=== PATIENT | male | born 1935 | race Caucasian/White ===

== ENCOUNTER 2021-10-12 15:38 | Inpatient (IN) ==
[2021-10-12] MEDS ORDERED: Isovue-370 500 ML BOTTLE IVP ONE (16:23)
[2021-10-12 16:52] LABS: Basophils # 0.1 K/mcL (0.0-0.2); Basophils % 0.4 %; Eosinophils # 0.5 K/mcL (0.0-0.6); Hematocrit 38.5 % (37.5-50.1); Hemoglobin 13.6 g/dL (12.9-16.9); Immature Granulocytes % 2.1 % (0-4); Lymphocytes # 0.8 K/mcL (0.6-4.6); Lymphocytes % 6.6 %; Mean Corpuscular HGB Conc 35.3 g/dL (31.6-35.5); Mean Corpuscular Hemoglobin 35.6 pg (28.0-33.3); Mean Corpuscular Volume 100.8 fL (83.0-100.0); Mean Platelet Volume 9.7 fL (9.4-12.4); Monocytes # 0.9 K/mcL (0.0-1.3); Monocytes % 7.6 %; Neutrophils # 9.2 K/mcL (1.6-8.9); Platelet Count 138 K/mcL (140-400); Red Blood Count 3.82 M/mcL (4.19-5.50); Red Cell Distribution Width 13.3 % (11.5-14.5); Segmented Neutrophils % 79.3 %; White Blood Count 11.6 K/mcL (4.3-11.1)
[2021-10-12 17:00] LABS: INR 1.1; Prothrombin Time 12.6 Seconds (9.4-12.1)
[2021-10-12 17:03] LABS: Activated Partial Thrombo Time 28.8 Seconds (26.0-36.0)
[2021-10-12 17:10] LABS: Alanine Aminotransferase 17 Units/L (7-52); Albumin 3.6 g/dL (3.5-5.7); Albumin/Globulin Ratio 1.6 (1.1-2.2); Alkaline Phosphatase 28 Units/L (34-104); Aspartate Amino Transferase 17 Units/L (13-39); BUN/Creatinine Ratio 12 (6-26); Bilirubin,Direct 0.3 mg/dL (0.0-0.2); Bilirubin,Indirect 0.9 mg/dL (0.0-1.0); Bilirubin,Total 1.2 mg/dL (0.3-1.0); Blood Urea Nitrogen 16 mg/dL (8-23); Calcium 8.3 mg/dL (8.6-10.3); Carbon Dioxide 28 mEq/L (23-29); Chloride 95 mEq/L (98-107); Globulin 2.2 g/dL (2.4-3.5); Glucose 134 mg/dL (70-105); Osmolality,Calculated 275 (280-300); Potassium 3.8 mEq/L (3.5-5.1); Sodium 131 mEq/L (136-145); Total Protein 5.8 g/dL (6.4-8.9); Troponin I 0.05 ng/mL (< 0.04); eGFR For African Americans > 60 (> 60); eGFR For Non-African Americans 51 (> 60)
[2021-10-12] MEDS ORDERED: cefTRIAXone 1,000 MG in 0.9 % Sodium Chloride 10 ML IVP ONE (18:47)
[2021-10-12] MEDS ORDERED: Azithromycin 500 MG in 0.9 % Sodium Chloride 250 ML IVPB ONE (18:47)
[2021-10-12 19:58] LABS: Influenza A PCR Negative (Negative); Influenza B PCR Negative (Negative); Resp. Syncytial Virus PCR Negative (Negative)
[2021-10-12 19:59] LABS: SARS-CoV-2 by PCR (In House) Negative (Negative)
[2021-10-12] MEDS ORDERED: Acetaminophen 325 MG TABLET PO PRN (20:55)
[2021-10-12] MEDS ORDERED: Melatonin 3 MG TABLET PO PRN (20:55)
[2021-10-12] MEDS ORDERED: *HR* HYDROcodone/Acet 5/325 mg TABLET PO PRN (20:55)
[2021-10-12] MEDS ORDERED: Naloxone 0.4 MG/ML INJ IVP PRN (20:55)
[2021-10-12] MEDS ORDERED: levoFLOXacin 750 MG/150 ML 750 MG/150 ML BAG IVPB SCH (21:00)
[2021-10-12] MEDS ORDERED: Ipratropium/Albuterol Neb 3 ML IH ONE (21:15)
[2021-10-12] MEDS ORDERED: D5% in Water 1,000 ML IVC PRN (22:02)
[2021-10-12] MEDS ORDERED: Dextrose 4 GM Chewable Tablets PO PRN ×2 (22:02)
[2021-10-12] MEDS ORDERED: *HR* Dextrose 50 % in Water (Syg) 50 ML SYRINGE IVP PRN (22:02)
[2021-10-12] MEDS ORDERED: Perflutren Lipid Microsphere 1.3 ML in 0.9 % Sodium Chloride 8.7 ML IVP PRN (22:05)
[2021-10-12] MEDS: Furosemide 20 MG/2 ML VIAL IVP SCH (23:43)
[2021-10-12] MEDS: Insulin LISPRO 300 UNITS/3 ML VIAL SUBQ SCH (23:43)
[2021-10-12] MEDS: *HR* Heparin 5,000 UNIT/ML VIAL SQ SCH (23:43)
[2021-10-12] MEDS: predniSONE 20 MG TABLET PO SCH (23:44)
[2021-10-13 01:02] LABS: BUN/Creatinine Ratio 12 (6-26); Blood Urea Nitrogen 16 mg/dL (8-23); Calcium 8.1 mg/dL (8.6-10.3); Carbon Dioxide 22 mEq/L (23-29); Chloride 95 mEq/L (98-107); Glucose 211 mg/dL (70-105); Magnesium 1.1 mg/dL (1.6-2.6); Osmolality,Calculated 277 (280-300); Phosphorous 2.6 mg/dL (2.7-4.5); Potassium 3.7 mEq/L (3.5-5.1); Sodium 130 mEq/L (136-145); eGFR For African Americans > 60 (> 60); eGFR For Non-African Americans 51 (> 60)
[2021-10-13 02:29] LABS: Basophils % 0.3 %; Eosinophils # 0.4 K/mcL (0.0-0.6); Eosinophils % 2.8 %; Hematocrit 36.5 % (37.5-50.1); Hemoglobin 12.5 g/dL (12.9-16.9); Immature Granulocytes % 1.7 % (0-4); Lymphocytes # 0.5 K/mcL (0.6-4.6); Lymphocytes % 3.4 %; Mean Corpuscular HGB Conc 34.2 g/dL (31.6-35.5); Mean Corpuscular Hemoglobin 33.7 pg (28.0-33.3); Mean Corpuscular Volume 98.4 fL (83.0-100.0); Mean Platelet Volume 9.8 fL (9.4-12.4); Monocytes # 0.6 K/mcL (0.0-1.3); Monocytes % 4.5 %; Neutrophils # 11.9 K/mcL (1.6-8.9); Nucleated Red Blood Cells 0.2 /100 WBC (0); Platelet Count 103 K/mcL (140-400); Red Blood Count 3.71 M/mcL (4.19-5.50); Red Cell Distribution Width 13.3 % (11.5-14.5); Segmented Neutrophils % 87.3 %; White Blood Count 13.7 K/mcL (4.3-11.1)
[2021-10-13] MEDS: *HR* Heparin 5,000 UNIT/ML VIAL SQ SCH ×2 (05:45→18:05)
[2021-10-13] MEDS: Insulin LISPRO 300 UNITS/3 ML VIAL SUBQ SCH ×3 (05:46→18:06)
[2021-10-13] MEDS: Furosemide 20 MG/2 ML VIAL IVP SCH (09:24)
[2021-10-13] MEDS: predniSONE 20 MG TABLET PO SCH (09:25)
[2021-10-13] MEDS: Gabapentin 300 MG CAPSULE PO SCH ×2 (14:55→22:07)
[2021-10-13] MEDS ORDERED: atenoloL 50 MG TABLET PO SCH (18:00)
[2021-10-13] MEDS ORDERED: Latanoprost 2.5 ML BOTTLE RIGHT EYE SCH (21:00)
[2021-10-13] MEDS: Dorzolamide OPTH 10 ML BOTTLE RIGHT EYE SCH (22:48)
[2021-10-13] MEDS ORDERED: Azithromycin 500 MG in 0.9 % Sodium Chloride 250 ML IVPB SCH (23:00)
[2021-10-14] MEDS: Insulin LISPRO 300 UNITS/3 ML VIAL SUBQ SCH ×2 (03:14→06:00)
[2021-10-14] MEDS: *HR* Heparin 5,000 UNIT/ML VIAL SQ SCH (06:00)
[2021-10-14 06:36] LABS: Basophils % 0.1 %; Eosinophils % 0.1 %; Hematocrit 33.2 % (37.5-50.1); Hemoglobin 11.5 g/dL (12.9-16.9); Immature Granulocytes % 0.8 % (0-4); Lymphocytes # 0.3 K/mcL (0.6-4.6); Lymphocytes % 3.3 %; Mean Corpuscular HGB Conc 34.6 g/dL (31.6-35.5); Mean Corpuscular Hemoglobin 33.8 pg (28.0-33.3); Mean Corpuscular Volume 97.6 fL (83.0-100.0); Mean Platelet Volume 10.3 fL (9.4-12.4); Monocytes # 0.4 K/mcL (0.0-1.3); Monocytes % 4.4 %; Neutrophils # 8.6 K/mcL (1.6-8.9); Platelet Count 112 K/mcL (140-400); Red Cell Distribution Width 13.2 % (11.5-14.5); Segmented Neutrophils % 91.3 %; White Blood Count 9.5 K/mcL (4.3-11.1)
[2021-10-14] MEDS: Gabapentin 300 MG CAPSULE PO SCH (08:12)
[2021-10-14] MEDS: predniSONE 20 MG TABLET PO SCH (08:13)
[2021-10-14] MEDS: Furosemide 20 MG/2 ML VIAL IVP SCH (08:13)
[2021-10-14] MEDS: Dorzolamide OPTH 10 ML BOTTLE RIGHT EYE SCH (08:16)
[2021-10-14 08:21] LABS: BUN/Creatinine Ratio 20 (6-26); Blood Urea Nitrogen 25 mg/dL (8-23); Calcium 8.3 mg/dL (8.6-10.3); Carbon Dioxide 28 mEq/L (23-29); Chloride 99 mEq/L (98-107); Glucose 175 mg/dL (70-105); Osmolality,Calculated 291 (280-300); Potassium 3.4 mEq/L (3.5-5.1); Sodium 136 mEq/L (136-145); eGFR For African Americans > 60 (> 60); eGFR For Non-African Americans 54 (> 60)
[2021-10-14] MEDS ORDERED: Aspirin Enteric Coated 81 MG Tablet PO SCH (09:00)
[2021-10-14] MEDS ORDERED: Isosorbide MONOnitrate (24 HR) 30 MG TAB.ER.24H PO SCH (09:00)
[2021-10-14] MEDS ORDERED: cefTRIAXone 1,000 MG in Water for inj. (sterile) 10 ML IVP SCH (09:00)
[2021-10-14] MEDS ORDERED: Finasteride 5 MG TABLET PO SCH (09:00)
[2021-10-14 10:36] VITALS: BP 93/62; PULSE 78; TEMP 98.1; O2SAT 93
[2021-10-14 13:15] LABS: Bilirubin,Urine Negative (Negative); Blood,Urine Negative (Negative); Clarity,Urine Clear (Clear); Color,Urine Light-Yellow (Yellow); Glucose,Urine (UA) 300 mg/dL (Normal); Ketones,Urine Negative (Negative); Leukocyte Esterase,Urine Negative (Negative); Mucus,Urine Few per lpf (None-Few); Nitrite,Urine Negative (Negative); PH,Urine 5.5 pH Units (5.0-8.0); Protein,Urine Trace mg/dL (Neg-Trace); RBC,Urine 0-3 per hpf (0-3); Specific Gravity,Urine 1.018 (1.010-1.025); Squamous Epithelial Cell,Urine Few per hpf (None-Few); Urobilinogen,Urine Normal (Normal); WBC,Urine 0-3 per hpf (0-3)
== END 2021-10-14 14:06 | disposition home health service (06) | DRG 193 ==
LOC: EMEROOARM 15:38 → 3ANU 15:38 → SUATTDRO 19:35 → 3ANU 20:17 → SUATTDRO 10-13 12:59
PROVIDERS: ADMIT Internal Medicine; ATTEND Family Medicine

== ENCOUNTER 2021-11-04 10:36 | Inpatient (IN) ==
[2021-11-04 11:23] LABS: Immature Granulocytes % 1.5 % (0-4); Red Cell Distribution Width 13.4 % (11.5-14.5)
[2021-11-04 11:25] LABS: Basophils # 0.1 K/mcL (0.0-0.2); Basophils % 0.5 %; Eosinophils # 0.4 K/mcL (0.0-0.6); Eosinophils % 2.9 %; Hematocrit 38.8 % (37.5-50.1); Hemoglobin 12.8 g/dL (12.9-16.9); Immature Platelets 3.8 % (1.1-6.1); Lymphocytes # 0.2 K/mcL (0.6-4.6); Lymphocytes % 1.6 %; Mean Corpuscular Hemoglobin 33.6 pg (28.0-33.3); Mean Corpuscular Volume 101.8 fL (83.0-100.0); Mean Platelet Volume 10.7 fL (9.4-12.4); Monocytes # 0.7 K/mcL (0.0-1.3); Monocytes % 4.4 %; Neutrophils # 13.6 K/mcL (1.6-8.9); Nucleated Red Blood Cells 0.1 /100 WBC (0); Red Blood Count 3.81 M/mcL (4.19-5.50); Segmented Neutrophils % 89.1 %; White Blood Count 15.3 K/mcL (4.3-11.1)
[2021-11-04 11:26] LABS: Platelet Count 81 K/mcL (140-400)
[2021-11-04 11:38] LABS: Calcium 8.7 mg/dL (8.6-10.3); Potassium 4.2 mEq/L (3.5-5.1)
[2021-11-04 11:43] LABS: Troponin I 0.05 ng/mL (< 0.04)
[2021-11-04] MEDS ORDERED: 0.9 % Sodium Chloride 1,000 ML IVC STA (12:01)
[2021-11-04] MEDS ORDERED: Cefepime HCl 2,000 MG in 0.9 % Sodium Chloride 10 ML IVP ONE (12:22)
[2021-11-04] MEDS ORDERED: Ondansetron 4 MG/2 ML VIAL IVP PRN (12:43)
[2021-11-04] MEDS ORDERED: Acetaminophen 325 MG TABLET PO PRN (12:43)
[2021-11-04] MEDS ORDERED: D5% in Water 1,000 ML IVC PRN (12:43)
[2021-11-04] MEDS ORDERED: Naloxone 0.4 MG/ML INJ IVP PRN (12:43)
[2021-11-04] MEDS ORDERED: Dextrose 4 GM Chewable Tablets PO PRN ×2 (12:43)
[2021-11-04] MEDS ORDERED: *HR* Dextrose 50 % in Water (Syg) 50 ML SYRINGE IVP PRN (12:43)
[2021-11-04 13:13] LABS: Influenza A PCR Negative (Negative); Influenza B PCR Negative (Negative); Resp. Syncytial Virus PCR Negative (Negative); SARS-CoV-2 by PCR (In House) Negative (Negative)
[2021-11-04] MEDS: Piperacillin/Tazobactam 3.375 GM in 0.9 % Sodium Chloride Mini Bag 100 ML IVPB SCH ×2 (15:05→23:26)
[2021-11-04] MEDS ORDERED: 0.9 % Sodium Chloride 1,000 ML IVC ONE (16:07)
[2021-11-04] MEDS ORDERED: Ipratropium/Albuterol Neb 3 ML IH PRN (16:14)
[2021-11-04] MEDS: Insulin LISPRO 300 UNITS/3 ML VIAL SUBQ SCH (16:32)
[2021-11-04] MEDS: MethylPREDNISolone 40 MG/ML VIAL IVP SCH (18:31)
[2021-11-04] MEDS: *HR* Heparin 5,000 UNIT/ML VIAL SQ SCH (18:32)
[2021-11-04] MEDS: Insulin DETEMIR 100 UNIT/ML X5UNITS SUBQ SCH (20:28)
[2021-11-05 03:27] LABS: Red Cell Distribution Width 13.2 % (11.5-14.5)
[2021-11-05 03:29] LABS: Basophils % 0.2 %; Eosinophils % 0.1 %; Hematocrit 32.3 % (37.5-50.1); Hemoglobin 10.6 g/dL (12.9-16.9); Immature Granulocytes % 1.7 % (0-4); Lymphocytes # 0.2 K/mcL (0.6-4.6); Lymphocytes % 2.5 %; Mean Corpuscular HGB Conc 32.8 g/dL (31.6-35.5); Mean Corpuscular Hemoglobin 33.5 pg (28.0-33.3); Mean Corpuscular Volume 102.2 fL (83.0-100.0); Mean Platelet Volume 10.9 fL (9.4-12.4); Monocytes # 0.1 K/mcL (0.0-1.3); Neutrophils # 8.7 K/mcL (1.6-8.9); Nucleated Red Blood Cells 0.2 /100 WBC (0); Platelet Count 61 K/mcL (140-400); Red Blood Count 3.16 M/mcL (4.19-5.50); Segmented Neutrophils % 94.5 %; White Blood Count 9.2 K/mcL (4.3-11.1)
[2021-11-05] MEDS: *HR* Heparin 5,000 UNIT/ML VIAL SQ SCH ×2 (03:52→17:01)
[2021-11-05 03:59] LABS: BUN/Creatinine Ratio 18 (6-26); Blood Urea Nitrogen 23 mg/dL (8-23); Calcium 7.8 mg/dL (8.6-10.3); Carbon Dioxide 26 mEq/L (23-29); Chloride 103 mEq/L (98-107); Glucose 319 mg/dL (70-105); Magnesium 1.3 mg/dL (1.6-2.6); Osmolality,Calculated 296 (280-300); Phosphorous 1.8 mg/dL (2.7-4.5); Potassium 4.5 mEq/L (3.5-5.1); Sodium 135 mEq/L (136-145); Troponin I 0.03 ng/mL (< 0.04); eGFR For African Americans > 60 (> 60); eGFR For Non-African Americans 52 (> 60)
[2021-11-05] MEDS: MethylPREDNISolone 40 MG/ML VIAL IVP SCH ×2 (05:25→17:01)
[2021-11-05] MEDS: Insulin LISPRO 300 UNITS/3 ML VIAL SUBQ SCH ×3 (07:53→17:01)
[2021-11-05] MEDS: Piperacillin/Tazobactam 3.375 GM in 0.9 % Sodium Chloride Mini Bag 100 ML IVPB SCH ×3 (07:53→23:18)
[2021-11-05] MEDS ORDERED: Lidocaine -MPF 4% 5 ML AMPUL ONE (08:45)
[2021-11-05] MEDS ORDERED: Lidocaine -MPF 2% 5 ML VIAL ONE (08:45)
[2021-11-05] MEDS ORDERED: *HR* Propofol 200 MG/20 ML VIAL IVP ONE (08:46)
[2021-11-05] MEDS ORDERED: Ondansetron 4 MG/2 ML VIAL IVP PRN (08:54)
[2021-11-05] MEDS ORDERED: *HR* FentaNYL (PF) 100 MCG/2 ML VIAL IVP PRN (08:54)
[2021-11-05] MEDS ORDERED: Albuterol 2.5 MG/3 ML NEBULIZER IH PRN (08:54)
[2021-11-05] MEDS ORDERED: *HR* FentaNYL (PF) 100 MCG/2 ML VIAL ONE (10:24)
[2021-11-05] MEDS ORDERED: Ondansetron 4 MG/2 ML VIAL ONE (10:29)
[2021-11-05] MEDS ORDERED: *HR* EPINEPHrine 1 MG/10 ML SYRINGE INTRATRACH PRN (10:53)
[2021-11-05] MEDS ORDERED: *HR* EPINEPHrine 1 MG/10 ML SYRINGE ONE (10:57)
[2021-11-05 14:21] LABS: Source of Body Fluid RLL BAL
[2021-11-05 15:12] LABS: Total Protein,Pleural Fluid 2.9 g/dL
[2021-11-05 15:25] LABS: RBC,Pleural Fluid 13000 RBC/mcL
[2021-11-05 15:46] LABS: Basophils,Pleural Fluid 0 %
[2021-11-05 15:47] LABS: Appearance of Pleural Fl Hazy (Clear)
[2021-11-05 18:58] LABS: Appearance of Body Fluid Hazy (Clear); Volume of Body Fluid 20 mL
[2021-11-05] MEDS: Insulin DETEMIR 100 UNIT/ML X5UNITS SUBQ SCH (20:36)
[2021-11-06 03:00] LABS: Basophils % 0.1 %; Mean Corpuscular Volume 101.9 fL (83.0-100.0); Red Cell Distribution Width 13.5 % (11.5-14.5)
[2021-11-06 03:02] LABS: Hematocrit 32.9 % (37.5-50.1); Hemoglobin 10.7 g/dL (12.9-16.9); Immature Granulocytes % 1.2 % (0-4); Immature Platelets 4.8 % (1.1-6.1); Lymphocytes % 1.8 %; Mean Corpuscular HGB Conc 32.5 g/dL (31.6-35.5); Mean Corpuscular Hemoglobin 33.1 pg (28.0-33.3); Mean Platelet Volume 10.5 fL (9.4-12.4); Monocytes # 0.4 K/mcL (0.0-1.3); Monocytes % 2.8 %; Neutrophils # 12.9 K/mcL (1.6-8.9); Red Blood Count 3.23 M/mcL (4.19-5.50); Segmented Neutrophils % 94.1 %; White Blood Count 13.7 K/mcL (4.3-11.1)
[2021-11-06 03:03] LABS: Lymphocytes # 0.3 K/mcL (0.6-4.6); Platelet Count 66 K/mcL (140-400)
[2021-11-06 03:16] LABS: Calcium 8.3 mg/dL (8.6-10.3); Potassium 4.1 mEq/L (3.5-5.1)
[2021-11-06] MEDS ORDERED: 0.9 % Sodium Chloride 1,000 ML IVC ONE (03:54)
[2021-11-06] MEDS ORDERED: *HR* Metoprolol 5 MG/5 ML VIAL IVP ONE ×2 (03:55→08:52)
[2021-11-06] MEDS: *HR* Heparin 5,000 UNIT/ML VIAL SQ SCH ×2 (04:57→17:00)
[2021-11-06] MEDS: Insulin LISPRO 300 UNITS/3 ML VIAL SUBQ SCH ×3 (08:42→17:11)
[2021-11-06] MEDS: Piperacillin/Tazobactam 3.375 GM in 0.9 % Sodium Chloride Mini Bag 100 ML IVPB SCH ×2 (10:29→17:01)
[2021-11-06] MEDS: MethylPREDNISolone 40 MG/ML VIAL IVP SCH ×2 (10:29→17:00)
[2021-11-06] MEDS ORDERED: DilTIAZem 50 MG/50 ML IV.SOLN IVP SCH (12:00)
[2021-11-06] MEDS: Gabapentin 300 MG CAPSULE PO SCH ×2 (15:05→20:13)
[2021-11-06] MEDS: atenoloL 50 MG TABLET PO SCH (17:00)
[2021-11-06] MEDS: DilTIAZem 50 MG/50 ML IV.SOLN IVC SCH ×2 (17:01→20:12)
[2021-11-06] MEDS: Insulin DETEMIR 100 UNIT/ML X5UNITS SUBQ SCH (20:13)
[2021-11-06] MEDS: Dorzolamide OPTH 10 ML BOTTLE RIGHT EYE SCH (20:19)
[2021-11-06] MEDS: Latanoprost 2.5 ML BOTTLE RIGHT EYE SCH (20:20)
[2021-11-07] MEDS: Piperacillin/Tazobactam 3.375 GM in 0.9 % Sodium Chloride Mini Bag 100 ML IVPB SCH ×4 (00:01→23:57)
[2021-11-07] MEDS: DilTIAZem 50 MG/50 ML IV.SOLN IVC SCH ×2 (01:22→08:09)
[2021-11-07 03:45] LABS: Hemoglobin 10.1 g/dL (12.9-16.9); Nucleated Red Blood Cells 0.3 /100 WBC (0); White Blood Count 11.1 K/mcL (4.3-11.1)
[2021-11-07 03:47] LABS: Basophils % 0.2 %; Hematocrit 31.3 % (37.5-50.1); Immature Granulocytes % 1.4 % (0-4); Immature Platelets 2.5 % (1.1-6.1); Lymphocytes # 0.2 K/mcL (0.6-4.6); Lymphocytes % 2.1 %; Mean Corpuscular HGB Conc 32.3 g/dL (31.6-35.5); Mean Corpuscular Hemoglobin 33.7 pg (28.0-33.3); Mean Corpuscular Volume 104.3 fL (83.0-100.0); Mean Platelet Volume 10.2 fL (9.4-12.4); Monocytes # 0.2 K/mcL (0.0-1.3); Monocytes % 2.2 %; Segmented Neutrophils % 94.1 %
[2021-11-07 03:49] LABS: Neutrophils # 10.5 K/mcL (1.6-8.9); Platelet Count 74 K/mcL (140-400)
[2021-11-07 04:01] LABS: BUN/Creatinine Ratio 23 (6-26); Blood Urea Nitrogen 30 mg/dL (8-23); Calcium 8.1 mg/dL (8.6-10.3); Carbon Dioxide 27 mEq/L (23-29); Chloride 110 mEq/L (98-107); Glucose 194 mg/dL (70-105); Osmolality,Calculated 303 (280-300); Potassium 4.4 mEq/L (3.5-5.1); Sodium 141 mEq/L (136-145); eGFR For African Americans > 60 (> 60); eGFR For Non-African Americans 53 (> 60)
[2021-11-07] MEDS: *HR* Heparin 5,000 UNIT/ML VIAL SQ SCH ×2 (06:58→17:16)
[2021-11-07] MEDS: MethylPREDNISolone 40 MG/ML VIAL IVP SCH ×2 (06:58→17:16)
[2021-11-07] MEDS: Finasteride 5 MG TABLET PO SCH (08:01)
[2021-11-07] MEDS: Aspirin Enteric Coated 81 MG Tablet PO SCH (08:01)
[2021-11-07] MEDS: Isosorbide MONOnitrate (24 HR) 30 MG TAB.ER.24H PO SCH (08:01)
[2021-11-07] MEDS: Gabapentin 300 MG CAPSULE PO SCH ×3 (08:01→20:03)
[2021-11-07] MEDS: Dorzolamide OPTH 10 ML BOTTLE RIGHT EYE SCH ×2 (08:02→20:04)
[2021-11-07] MEDS: Insulin LISPRO 300 UNITS/3 ML VIAL SUBQ SCH ×3 (08:02→17:17)
[2021-11-07] MEDS: atenoloL 50 MG TABLET PO SCH (17:16)
[2021-11-07] MEDS: Latanoprost 2.5 ML BOTTLE RIGHT EYE SCH (20:04)
[2021-11-07] MEDS: Insulin DETEMIR 100 UNIT/ML X5UNITS SUBQ SCH (20:04)
[2021-11-08 01:50] LABS: Hematocrit 30.7 % (37.5-50.1); Nucleated Red Blood Cells 0.6 /100 WBC (0); Segmented Neutrophils % 93.5 %
[2021-11-08 01:52] LABS: Basophils % 0.2 %; Hemoglobin 9.9 g/dL (12.9-16.9); Immature Granulocytes % 2.5 % (0-4); Lymphocytes # 0.2 K/mcL (0.6-4.6); Lymphocytes % 1.9 %; Mean Corpuscular HGB Conc 32.2 g/dL (31.6-35.5); Mean Corpuscular Hemoglobin 33.2 pg (28.0-33.3); Mean Platelet Volume 10.5 fL (9.4-12.4); Monocytes # 0.2 K/mcL (0.0-1.3); Monocytes % 1.9 %; Neutrophils # 10.1 K/mcL (1.6-8.9); Red Blood Count 2.98 M/mcL (4.19-5.50); Red Cell Distribution Width 13.6 % (11.5-14.5); White Blood Count 10.8 K/mcL (4.3-11.1)
[2021-11-08 01:55] LABS: Platelet Count 72 K/mcL (140-400)
[2021-11-08 02:10] LABS: BUN/Creatinine Ratio 25 (6-26); Blood Urea Nitrogen 31 mg/dL (8-23); Calcium 8.1 mg/dL (8.6-10.3); Carbon Dioxide 26 mEq/L (23-29); Chloride 108 mEq/L (98-107); Glucose 313 mg/dL (70-105); Osmolality,Calculated 310 (280-300); Potassium 4.4 mEq/L (3.5-5.1); Sodium 141 mEq/L (136-145); eGFR For African Americans > 60 (> 60); eGFR For Non-African Americans 56 (> 60)
[2021-11-08] MEDS: MethylPREDNISolone 40 MG/ML VIAL IVP SCH ×2 (05:43→17:24)
[2021-11-08] MEDS: *HR* Heparin 5,000 UNIT/ML VIAL SQ SCH ×2 (05:44→17:21)
[2021-11-08] MEDS: Finasteride 5 MG TABLET PO SCH (08:25)
[2021-11-08] MEDS: Isosorbide MONOnitrate (24 HR) 30 MG TAB.ER.24H PO SCH (08:25)
[2021-11-08] MEDS: Gabapentin 300 MG CAPSULE PO SCH ×3 (08:25→21:02)
[2021-11-08] MEDS: Piperacillin/Tazobactam 3.375 GM in 0.9 % Sodium Chloride Mini Bag 100 ML IVPB SCH ×2 (08:26→15:48)
[2021-11-08] MEDS: Aspirin Enteric Coated 81 MG Tablet PO SCH (08:26)
[2021-11-08] MEDS: Insulin LISPRO 300 UNITS/3 ML VIAL SUBQ SCH ×3 (08:26→17:24)
[2021-11-08] MEDS: Dorzolamide OPTH 10 ML BOTTLE RIGHT EYE SCH ×2 (08:27→21:02)
[2021-11-08 10:50] LABS: Cholesterol,Body Fluid 35 mg/dL; Fluid Source for Cholesterol PLEURAL FLUID; Fluid Source for Triglycerides PLEURAL FLUID; Triglycerides,Body Fluid 31 mg/dL
[2021-11-08] MEDS: atenoloL 50 MG TABLET PO SCH (17:24)
[2021-11-08] MEDS: Insulin DETEMIR 100 UNIT/ML X5UNITS SUBQ SCH (21:02)
[2021-11-08] MEDS: Latanoprost 2.5 ML BOTTLE RIGHT EYE SCH (21:02)
[2021-11-09] MEDS: Piperacillin/Tazobactam 3.375 GM in 0.9 % Sodium Chloride Mini Bag 100 ML IVPB SCH ×3 (00:04→16:04)
[2021-11-09] MEDS: MethylPREDNISolone 40 MG/ML VIAL IVP SCH (04:48)
[2021-11-09] MEDS: *HR* Heparin 5,000 UNIT/ML VIAL SQ SCH ×2 (04:48→17:03)
[2021-11-09] MEDS: Insulin LISPRO 300 UNITS/3 ML VIAL SUBQ SCH ×3 (07:38→17:04)
[2021-11-09] MEDS: Finasteride 5 MG TABLET PO SCH (07:39)
[2021-11-09] MEDS: Aspirin Enteric Coated 81 MG Tablet PO SCH (07:39)
[2021-11-09] MEDS: Gabapentin 300 MG CAPSULE PO SCH ×3 (07:39→19:43)
[2021-11-09] MEDS: Isosorbide MONOnitrate (24 HR) 30 MG TAB.ER.24H PO SCH (07:39)
[2021-11-09] MEDS: Dorzolamide OPTH 10 ML BOTTLE RIGHT EYE SCH ×3 (07:42→19:42)
[2021-11-09] MEDS: Furosemide 20 MG/2 ML VIAL IVP SCH (17:03)
[2021-11-09] MEDS: atenoloL 50 MG TABLET PO SCH (17:05)
[2021-11-09] MEDS: *HR* HYDROcodone/Acet 5/325 mg TABLET PO PRN (17:28)
[2021-11-09] MEDS: Latanoprost 2.5 ML BOTTLE RIGHT EYE SCH (19:43)
[2021-11-09] MEDS: Insulin DETEMIR 100 UNIT/ML X5UNITS SUBQ SCH (20:47)
[2021-11-10] MEDS: Piperacillin/Tazobactam 3.375 GM in 0.9 % Sodium Chloride Mini Bag 100 ML IVPB SCH ×3 (00:25→16:19)
[2021-11-10] MEDS: *HR* HYDROcodone/Acet 5/325 mg TABLET PO PRN (00:45)
[2021-11-10] MEDS ORDERED: Vancomycin 1,250 MG/262.5 ML IV.SOLN IVPB SCH (05:00)
[2021-11-10] MEDS: *HR* Heparin 5,000 UNIT/ML VIAL SQ SCH ×2 (05:19→17:38)
[2021-11-10 05:51] LABS: Basophils % 0.3 %; Eosinophils # 0.3 K/mcL (0.0-0.6); Eosinophils % 3.4 %; Hematocrit 38.2 % (37.5-50.1); Immature Granulocytes % 1.2 % (0-4); Lymphocytes # 0.2 K/mcL (0.6-4.6); Lymphocytes % 2.3 %; Mean Corpuscular HGB Conc 34.6 g/dL (31.6-35.5); Mean Corpuscular Hemoglobin 34.8 pg (28.0-33.3); Mean Corpuscular Volume 100.8 fL (83.0-100.0); Mean Platelet Volume 10.9 fL (9.4-12.4); Monocytes # 0.1 K/mcL (0.0-1.3); Monocytes % 1.1 %; Nucleated Red Blood Cells 1.5 /100 WBC (0); Red Blood Count 3.79 M/mcL (4.19-5.50); Segmented Neutrophils % 91.7 %; White Blood Count 9.8 K/mcL (4.3-11.1)
[2021-11-10 06:03] LABS: Hemoglobin 13.2 g/dL (12.9-16.9); Platelet Count 62 K/mcL (140-400)
[2021-11-10 06:14] LABS: Calcium 8.9 mg/dL (8.6-10.3); Potassium 3.9 mEq/L (3.5-5.1)
[2021-11-10] MEDS: Furosemide 20 MG/2 ML VIAL IVP SCH (08:05)
[2021-11-10] MEDS: Finasteride 5 MG TABLET PO SCH (08:06)
[2021-11-10] MEDS: Gabapentin 300 MG CAPSULE PO SCH ×3 (08:06→19:51)
[2021-11-10] MEDS: Isosorbide MONOnitrate (24 HR) 30 MG TAB.ER.24H PO SCH (08:06)
[2021-11-10] MEDS: Aspirin Enteric Coated 81 MG Tablet PO SCH (08:06)
[2021-11-10] MEDS: Insulin LISPRO 300 UNITS/3 ML VIAL SUBQ SCH ×3 (08:11→17:38)
[2021-11-10] MEDS ORDERED: 0.9 % Sodium Chloride 500 ML IVC SCH (15:15)
[2021-11-10] MEDS: atenoloL 50 MG TABLET PO SCH (17:39)
[2021-11-10] MEDS: Latanoprost 2.5 ML BOTTLE RIGHT EYE SCH (19:52)
[2021-11-10] MEDS: Insulin DETEMIR 100 UNIT/ML X5UNITS SUBQ SCH (19:56)
[2021-11-10] MEDS ORDERED: 0.9 % Sodium Chloride 1,000 ML IVC SCH (20:30)
[2021-11-11] MEDS: Piperacillin/Tazobactam 3.375 GM in 0.9 % Sodium Chloride Mini Bag 100 ML IVPB SCH ×2 (00:20→10:18)
[2021-11-11 03:16] VITALS: PULSE 86
[2021-11-11] MEDS: *HR* Heparin 5,000 UNIT/ML VIAL SQ SCH (05:22)
[2021-11-11 07:00] VITALS: BP 157/85; TEMP 97.8; O2SAT 97
[2021-11-11] MEDS ORDERED: Insulin LISPRO 300 UNITS/3 ML VIAL SUBQ SCH (08:15)
[2021-11-11] MEDS: Isosorbide MONOnitrate (24 HR) 30 MG TAB.ER.24H PO SCH (09:48)
[2021-11-11] MEDS: Furosemide 20 MG/2 ML VIAL IVP SCH (09:48)
[2021-11-11] MEDS: Aspirin Enteric Coated 81 MG Tablet PO SCH (09:48)
[2021-11-11] MEDS: Gabapentin 300 MG CAPSULE PO SCH (09:49)
[2021-11-11] MEDS: Finasteride 5 MG TABLET PO SCH (09:49)
[2021-11-11] MEDS: Dorzolamide OPTH 10 ML BOTTLE RIGHT EYE SCH (10:25)
== END 2021-11-11 13:26 | disposition hospice, inpatient (51) | DRG 871 ==
LOC: 3ANU 10:36 → EMEROOARM 10:36 → 3ANU 13:03 → SUATTDRO 11-06 16:46
PROVIDERS: ADMIT Internal Medicine; ATTEND Student in an Organized Health Care Education/Training Program
PROC: ENDOAPI (2021-11-05 09:30)